=== PATIENT | female | born 1985 | race Caucasian/White ===

== ENCOUNTER 2024-02-29 10:54 | Emergency (ER) | payer OTHER ==
[2024-02-29 11:14] VITALS: BP 115/72; PULSE 71; RESP 18; TEMP 98; BMI 25.0
[2024-02-29] MEDS ORDERED: METOCLOPRAMIDE HCL INJECTION 10 MG/2 ML VIAL ONE (12:46)
[2024-02-29] MEDS ORDERED: KETOROLAC TROMETHAMINE 30 MG/1 ML VIAL ONE (12:46)
[2024-02-29] MEDS: SODIUM CHLORIDE 1,000 ML IV STA (13:25)
[2024-02-29] MEDS: KETOROLAC TROMETHAMINE 30 MG/1 ML VIAL IVPUSH ONE (13:26)
[2024-02-29] MEDS: METOCLOPRAMIDE HCL INJECTION 10 MG/2 ML VIAL IVPB ONE (13:26)
[2024-02-29] MEDS ORDERED: MECLIZINE HCL 25 MG TABLET (FP) ONE (15:07)
[2024-02-29] MEDS: MECLIZINE HCL 25 MG TABLET (FP) PO ONE (15:16)
== END 2024-02-29 16:29 | disposition home or self-care (01) ==
LOC: JER 10:54
PROC: 3E033NZ Introduction of Analgesics, Hypnotics, Sedatives into Peripheral Vein, Percutaneous Approach (ICD-10-PCS; principal; 2024-02-29)
PROC: 3E033GC Introduction of Other Therapeutic Substance into Peripheral Vein, Percutaneous Approach (ICD-10-PCS; 2024-02-29)
PROC: 3E0337Z Introduction of Electrolytic and Water Balance Substance into Peripheral Vein, Percutaneous Approach (ICD-10-PCS; 2024-02-29)
DX: R42 Dizziness and giddiness (principal); R51.9 Headache, unspecified
CPT/HCPCS: 84703; 99284-25